=== PATIENT | male | born 1990 | race Caucasian/White ===

== ENCOUNTER 2018-05-18 13:17 | Emergency (ER) | payer OTHER ==
[~2018-05-18] VITALS: Ht 177.8 cm; Wt 70.3 kg
[2018-05-18 13:21] VITALS: BP 133/79; Ht 177.8 cm; Wt 70.3 kg
== END 2018-05-18 14:20 | disposition other institution (70) ==
LOC: ED 13:17
DX: S00.432A Contusion of left ear, initial encounter (principal); S00.83XA Contusion of other part of head, initial encounter; Y04.8XXA Assault by other bodily force, initial encounter; Y93.89 Activity, other specified; Y92.89 Other specified places as the place of occurrence of the external cause; Y99.8 Other external cause status

== ENCOUNTER 2018-05-18 13:17 | Emergency (ER) | payer OTHER | END 2018-05-18 14:20 | disposition other institution (70) | LOC: ED 13:17 | DX: Z02.89 Encounter for other administrative examinations (principal) ==